=== PATIENT | male | born 1980 | race Caucasian/White ===

== ENCOUNTER 2024-04-24 09:06 | Emergency (ER) | payer OTHER, SELFPAY ==
[2024-04-24 09:09] VITALS: BP 150/86; PULSE 79; TEMP 36.6; O2SAT 96; BMI 20.2
--- NOTE | 2024-04-24 09:20 | ED_ITS ---
HPI HPI - General Adult General Chief complaint: Extremity Problem, Nontraumatic Stated complaint: LT LEG PAIN Time Seen by Provider: 04/24/24 09:09 Source: patient Mode of arrival: walk-in History of Present Illness HPI narrative: 43-year-old male presents to the emergency department for redness and pain to his left knee. He states this started about 30 hours ago and he noticed it when he got home from work. He works maintenance and walks around a lot but does not spend any time on his knees. The right knee is unaffected but years ago he had cellulitis of his right knee. No fever or drainage. Related Data Previous Rx's ?Medication ?Instructions ?Recorded acetaminophen 300 mg-codeine 30 mg 1 tab PO Q6H PRN pain 5 days #20 04/24/24 tablet tabs cephalexin 500 mg capsule 500 mg PO QID 10 days #40 caps 04/24/24 Allergies Allergy/AdvReac Type Severity Reaction Status Date / Time No Known Drug Allergies Allergy Verified 04/24/24 09:15 Opioid HPI Opioid Management Most Recent Opioid Data: Last Pain Scale 7 04/24/24 10:22 04/24/24 Last MAR Pain Assessment 04/24/24 10:22 Review of Systems ROS Narrative A ten point review of systems is negative except as noted above. Exam Narrative Exam Narrative: Nurses note and vital signs reviewed and patient is not hypoxic. General: The patient appears well and in no apparent distress. Patient is resting comfortably on cart. Skin: Warm, dry, no pallor noted. There is no rash noted. Head: Normocephalic, atraumatic Eye: Normal conjunctiva, no drainage Ears, Nose, Mouth, and Throat: oral mucosa is moist. Nares patent. Cardiovascular: Regular Rate and Rhythm Respiratory: Patient is in no distress, no accessory muscle use, lungs are clear to auscultation, no wheezing, rales or rhonchi Back: non-tender GI: Soft and nontender Musculoskeletal: The left knee has erythema over the patella. It is warm to touch compared to the contralateral. There is no open area or swelling. He has full range of motion of his knee. Neurological: A&O, normal speech Psychiatric: Cooperative Constitutional Vital Signs, click to edit/add: Last Vital Signs Temp 98 F 04/24/24 09:09 Pulse 79 04/24/24 09:09 Resp 16 04/24/24 09:09 BP 150/86 H 04/24/24 09:09 Pulse Ox 96 04/24/24 09:09 O2 Del Method Room Air 04/24/24 09:09 Course Vital Signs Vital signs: Vital Signs Temperature 98 F 04/24/24 09:09 Pulse Rate 79 04/24/24 09:09 Respiratory Rate 16 04/24/24 09:09 Blood Pressure 150/86 H 04/24/24 09:09 Pulse Oximetry 96 04/24/24 09:09 Oxygen Delivery Method Room Air 04/24/24 09:09 Temperature 98 F 04/24/24 09:09 Pulse Rate 79 04/24/24 09:09 Respiratory Rate 16 04/24/24 09:09 Blood Pressure 150/86 H 04/24/24 09:09 Pulse Oximetry 96 04/24/24 09:09 Oxygen Delivery Method Room Air 04/24/24 09:09 Medical Decision Making MDM Narrative Medical decision making narrative: X-ray does not show a knee effusion. WBC is mildly elevated as are the sed rate and CRP. I do not suspect at this point joint infection. My clinical impression is that he has cellulitis. Case was discussed with Dr. Zepeda and the patient will see him tomorrow at 11:30 AM. The patient was offered crutches and states that he has a pair at home that he can use if he needs them. He was prescribed Keflex and Tylenol 3. Treatment diagnosis and follow-up were discussed with the patient. Differential Diagnosis Differential Diagnosis: Cellulitis, septic knee, bursitis Lab Data Lab results reviewed: Yes I reviewed the patient's lab results Labs: Lab Results 04/24/24 Range/Units 09:30 WBC 15.3 H (4.0-11.0) 10^3/uL RBC 5.02 (4.70-6.10) 10^6/uL Hgb 15.6 (14.0-18.0) g/dL Hct 45.7 (42.0-54.0) % MCV 91.0 (80.0-94.0) fL MCH 31.1 (25.9-34.0) pg MCHC 34.1 (29.9-35.2) g/dL RDW 12.7 (11.0-15.0) % Plt Count 276 (150-450) 10^3/uL MPV 9.2 L (9.5-13.5) fL Neut % (Auto) 74.7 (43.0-75.0) % Lymph % (Auto) 14.7 L (20.5-60.0) % [place] % (Auto) 8.8 (1.7-12.0) % Eos % (Auto) 1.2 (0.9-7.0) % Baso % (Auto) 0.3 (0.2-2.0) % Neut # (Auto) 11.4 H (1.4-6.5) 10^3/uL Lymph # (Auto) 2.2 (1.2-3.8) 10^3/uL [place] # (Auto) 1.4 H (0.3-0.8) 10^3/uL Eos # (Auto) 0.2 (0.0-0.7) 10^3/uL Baso # (Auto) 0.1 (0.0-0.1) 10^3/uL Abs Immat Gran (auto) 0.05 H (0.00-0.03) 10^3/uL Imm/Tot Granulo (auto) 0.3 (0.0-0.5) % ESR 20 H (<=15) mm/hr Sodium 139 (136-145) mmol/L Potassium 4.0 (3.5-5.1) mmol/L Chloride 105 (98-107) mmol/L Carbon Dioxide 25.3 (21.0-32.0) mmol/L Anion Gap 12.7 BUN 13.0 (7.0-18.0) mg/dL Creatinine 1.13 (0.70-1.30) mg/dL Est GFR ( Amer) >60 (>=60 mL/min/1.73m^2) Est GFR (Non-Af Amer) >60 (>=60 mL/min/1.73m^2) BUN/Creatinine Ratio 11.5 Glucose 148 H (74-106) mg/dL Calcium 9.1 (8.5-10.1) mg/dL C-Reactive Protein 8.78 H (<=0.50) mg/dL Imaging Data Left knee: Radiologist's impression: Soft tissue swelling anterior to the patella suggestive of edema or cellulitis. No air in the soft tissues. Discharge Plan Discharge Chief Complaint: Extremity Problem, Nontraumatic Clinical Impression: Cellulitis of left knee Patient Disposition: Home, Self-Care Time of Disposition Decision: 12:49 Condition: Good Mode of Transportation: Private Vehicle Prescriptions / Home Meds: New acetaminophen-codeine 300-30 mg tablet 1 tab PO Q6H PRN (Reason: pain) 5 Days Qty: 20 0RF cephalexin 500 mg capsule 500 mg PO QID 10 Days Qty: 40 0RF Print Language: Armenian Instructions: Cellulitis (ED) Referrals: Physician,Non-Staff, MD [Primary Care Provider] - 1 week Brandon Zepeda MD [Physician] - 1 week
[2024-04-24 09:40] LABS: Basophils Absolute Auto 0.1 10^3/uL (0.0-0.1); Basophils Percent Auto 0.3 % (0.2-2.0); Eosinophils Absolute Auto 0.2 10^3/uL (0.0-0.7); Eosinophils Percent Auto 1.2 % (0.9-7.0); Hematocrit 45.7 % (42.0-54.0); Hemoglobin 15.6 g/dL (14.0-18.0); Immature Granulocytes Abs Auto 0.05 10^3/uL (0.00-0.03); Immature Granulocytes Pct Auto 0.3 % (0.0-0.5); Lymphocytes Absolute Auto 2.2 10^3/uL (1.2-3.8); Lymphocytes Percent Auto 14.7 % (20.5-60.0); Mean Corpuscular HGB Conc 34.1 g/dL (29.9-35.2); Mean Corpuscular Hemoglobin 31.1 pg (25.9-34.0); Mean Platelet Volume 9.2 fL (9.5-13.5); Monocytes Absolute Auto 1.4 10^3/uL (0.3-0.8); Monocytes Percent Auto 8.8 % (1.7-12.0); Neutrophils Absolute Auto 11.4 10^3/uL (1.4-6.5); Neutrophils Percent Auto 74.7 % (43.0-75.0); Platelet Count 276 10^3/uL (150-450); Red Blood Count 5.02 10^6/uL (4.70-6.10); Red Cell Distribution Width 12.7 % (11.0-15.0); White Blood Count 15.3 10^3/uL (4.0-11.0)
[2024-04-24 09:52] LABS: Anion Gap 12.7; BUN Creatinine Ratio 11.5; C Reactive Protein 8.78 mg/dL (<=0.50); Calcium 9.1 mg/dL (8.5-10.1); Carbon Dioxide 25.3 mmol/L (21.0-32.0); Chloride 105 mmol/L (98-107); Estimated GFR (African America >60 (>=60 mL/min/1.73m^2); Estimated GFR (Non-African Ame >60 (>=60 mL/min/1.73m^2); Glucose 148 mg/dL (74-106); Sodium 139 mmol/L (136-145)
[2024-04-24 09:57] LABS: Erythrocyte Sedimentation Rate 20 mm/hr (<=15)
[2024-04-24] MEDS: CEFAZOLIN SODIUM/DEXTROSE,ISO 1 GM/50 ML PREMIX IV (10:22)
[2024-04-24] MEDS: KETOROLAC TROMETHAMINE 30 MG/ML VIAL IVP (10:22)
== END 2024-04-24 13:06 | disposition home or self-care (01) ==
PROVIDERS: Emergency Provider Emergency Medicine
DX: L03.116 Cellulitis of left lower limb (principal)
CPT/HCPCS: 36415; 73562; 80048; 83880; 85025; 85652; 86140; 96365; 96375; 99285; J0690; J1885